=== PATIENT | male | born 1970 | race African-American/Black ===

== ENCOUNTER 2017-11-22 03:31 | Emergency (ER) | payer SELFPAY ==
[~2017-11-22] VITALS: Ht 180.3 cm; Wt 74.0 kg
[~2017-11-22 03:31] MED LIST: GLIP5TAB12 PO; INSU3INS6 SUBCUT; METF500T6 PO
[2017-11-22 05:56] VITALS: BP 129/67
== END 2017-11-22 05:58 | disposition home or self-care (01) ==
LOC: ER 03:31
DX: Z51.89 Encounter for other specified aftercare (principal); L02.31 Cutaneous abscess of buttock; R03.0 Elevated blood-pressure reading, without diagnosis of hypertension; E11.9 Type 2 diabetes mellitus without complications; F12.90 Cannabis use, unspecified, uncomplicated
CPT/HCPCS: 99283

== ENCOUNTER 2018-03-06 06:17 | Emergency (ER) | payer MEDICAID ==
[~2018-03-06] VITALS: Ht 180.3 cm; Wt 73.0 kg
[2018-03-06] MEDS ORDERED: SODIUM CHLORIDE 0.9% 1,000 ML IV ONE ×2 (06:39→08:15)
[2018-03-06 07:13] LABS: BG BASE EXCESS 3.4 mmol/L (-2.0-2.0); BG DEOXYHEMOGLOBIN 4.5 % (0.0-5.0); BG HCO3 ACT 28.7 mmol/L (22.0-26.0); BG METHEMOGLOBIN 0.1 % (0.0-1.5); BG OXYGEN SATURATION 95.4 % (92.0-98.5); BG OXYHEMOGLOBIN 93.4 % (94.0-97.0); BG PCO2 46.5 mmHg (35.0-45.0); BG PH 7.409 (7.350-7.450); BG PO2 79.6 mmHg (75.0-100.0); BG SAMPLE SITE LEFT RADIAL; BG TOTAL HEMOGLOBIN 12.5 g/dL (12.0-18.0); BG VENT MODE ROOM AIR
[2018-03-06 07:33] LABS: BASOPHILS % 0.7 % (0.0-2.0); EOSINOPHILS % 0.7 % (0.0-5.0); HEMATOCRIT. 34.3 % (42.0-52.0); HEMOGLOBIN. 11.6 g/dL (14.0-18.0); LYMPHOCYTES % 21.9 % (20.0-50.0); MEAN PLATELET VOLUME 8.9 fl (7.4-10.4); MONOCYTES % 7.8 % (2.0-8.0); NEUTROPHILS % 68.9 % (40.0-76.0); PLATELET 219 x1000/uL (130-400); RED BLOOD CELL COUNT 3.99 mill/uL (4.7-6.1); RED CELL DISTRIBUTION WIDTH 13.7 % (11.6-14.6)
[2018-03-06 07:57] LABS: CHLORIDE 95 mEq/L (98-107)
[2018-03-06 08:06] LABS: BETA HYDROXYBUTYRATE 0.1 mMol/L (0.0-0.3)
[2018-03-06] MEDS ORDERED: INSULIN REGULAR (HUMULIN R) 300UNITS/3ML IV ONE ×2 (08:15→10:30)
[2018-03-06] MEDS ORDERED: HYDRALAZINE HCL 50MG TABLET PO ONE (10:30)
[2018-03-06 11:55] VITALS: BP 143/70
== END 2018-03-06 12:14 | disposition home or self-care (01) ==
LOC: ER 06:17
DX: E11.65 Type 2 diabetes mellitus with hyperglycemia (principal); I10 Essential (primary) hypertension; F12.10 Cannabis abuse, uncomplicated; E88.09 Other disorders of plasma-protein metabolism, not elsewhere classified; Z79.4 Long term (current) use of insulin
CPT/HCPCS: 36415; 36600; 71045; 73630; 80053; 82010; 82375; 82805; 82962; 85025; 93005; 96361; 96374; 96376; 99285; J1815; J7030; Z7610

== ENCOUNTER 2018-08-31 06:30 | Emergency (ER) | payer MEDICAID ==
[~2018-08-31] VITALS: Ht 180.3 cm; Wt 77.0 kg
[~2018-08-31 06:30] MED LIST changes: +METF-414 PO; -METF500T6 PO
[2018-08-31] MEDS ORDERED: ONDANSETRON HCL 4MG/2ML INJ IV STA (07:15)
[2018-08-31] MEDS ORDERED: MORPHINE SULFATE 4 MG/ML CPJ (NOT FOR IM USE) IV STA (07:15)
[2018-08-31 07:36] LABS: BASOPHILS % 0.6 % (0.0-2.0); EOSINOPHILS % 1.1 % (0.0-5.0); HEMATOCRIT. 31.3 % (42.0-52.0); HEMOGLOBIN. 10.7 g/dL (14.0-18.0); LYMPHOCYTES % 30.6 % (20.0-50.0); MEAN CORPUSCULAR HEMOGLOBIN 28.8 pg (28.0-32.0); MEAN CORPUSCULAR VOLUME 84.1 fL (80.0-94.0); MEAN PLATELET VOLUME 8.4 fl (7.4-10.4); NEUTROPHILS % 59.7 % (40.0-76.0); PLATELET 150 x1000/uL (130-400); RED BLOOD CELL COUNT 3.72 mill/uL (4.7-6.1); RED CELL DISTRIBUTION WIDTH 13.5 % (11.6-14.6)
[2018-08-31 07:41] LABS: CHLORIDE 99 mEq/L (98-107)
[2018-08-31] MEDS ORDERED: DOCUSATE SODIUM SUGAR FREE 100MG/10ML UDC NG ONE (10:00)
[2018-08-31] MEDS ORDERED: SODIUM CHLORIDE 0.9% 1,000 ML IV ONE (10:12)
[2018-08-31 10:25] LABS: CLARITY URINE CLEAR (CLEAR); COLOR URINE YELLOW (YELLOW); KETONES URINE NEGATIVE (NEGATIVE); LEUKOCYTE ESTERASE URINE NEGATIVE (NEGATIVE); NITRITE URINE NEGATIVE (NEGATIVE); OCCULT BLOOD URINE TRACE (NEGATIVE); PH URINE 7.5 (4.5-8.0); PROTEIN URINE 2+ (NEGATIVE); SPECIFIC GRAVITY URINE 1.031 (1.005-1.030); UROBILINOGEN URINE 0.2 E.U./dL (0.2-1.0)
[2018-08-31] MEDS ORDERED: IOHEXOL-300 100 ML BOTTLE ONE (10:57)
[2018-08-31 13:48] VITALS: BP 180/103
== END 2018-08-31 14:01 | disposition home or self-care (01) ==
LOC: ER 06:30
DX: K59.00 Constipation, unspecified (principal); E11.65 Type 2 diabetes mellitus with hyperglycemia; L90.5 Scar conditions and fibrosis of skin; R10.33 Periumbilical pain; R10.32 Left lower quadrant pain; I10 Essential (primary) hypertension; E78.00 Pure hypercholesterolemia, unspecified; F12.10 Cannabis abuse, uncomplicated; Z79.4 Long term (current) use of insulin; Z79.899 Other long term (current) drug therapy
CPT/HCPCS: 36415; 74177; 80053; 81003; 82962; 83690; 85025; 96361; 96374; 96375; 99284; J2270; J2405; J7030; Q9967

== ENCOUNTER 2018-09-19 07:23 | Emergency (ER) | payer MEDICAID ==
[~2018-09-19] VITALS: Ht 180.3 cm; Wt 75.0 kg
[2018-09-19] MEDS ORDERED: SODIUM CHLORIDE 0.9% 1,000 ML IV ONE (09:07)
[2018-09-19] MEDS ORDERED: GLIPIZIDE XL 2.5MG TABLET PO ONE (09:15)
[2018-09-19] MEDS ORDERED: INSULIN REGULAR (HUMULIN R) 300UNITS/3ML IV ONE (09:15)
[2018-09-19] MEDS ORDERED: INSULIN GLARGINE UD 100 UNITS/ML SYR SUBCUT ONE (09:15)
[2018-09-19] MEDS ORDERED: METFORMIN HCL 500MG TABLET PO ONE (09:15)
[2018-09-19 09:34] LABS: CHLORIDE 100 mEq/L (98-107)
[2018-09-19 09:46] LABS: BETA HYDROXYBUTYRATE 0.2 mMol/L (0.0-0.3)
[2018-09-19] MEDS ORDERED: GLIPIZIDE 5MG XL TABLET PO NR (10:15)
[2018-09-19 12:20] VITALS: BP 180/101
== END 2018-09-19 12:40 | disposition home or self-care (01) ==
LOC: ER 07:23
DX: E11.65 Type 2 diabetes mellitus with hyperglycemia (principal); Z79.4 Long term (current) use of insulin; Z79.84 Long term (current) use of oral hypoglycemic drugs
CPT/HCPCS: 36415; 80048; 82010; 82962; 83735; 96361; 96372; 96374; 99283; J1815; J7030

== ENCOUNTER 2018-12-06 21:02 | Inpatient (IN) | payer MEDICAID ==
[~2018-12-06] VITALS: Ht 182.9 cm; Wt 74.8 kg
[2018-12-07] MEDS ORDERED: SODIUM CHLORIDE 0.9% 1,000 ML IV ONE
[2018-12-07] MEDS ORDERED: INSULIN REGULAR (HUMULIN R) 300UNITS/3ML IV ONE
[2018-12-07] MEDS ORDERED: ONDANSETRON HCL 4MG/2ML INJ IV ONE
[2018-12-07] MEDS ORDERED: MORPHINE SULFATE 4 MG/ML CPJ (NOT FOR IM USE) IV ONE
[2018-12-07] MEDS ORDERED: LABETALOL 5MG/ML SYR 20 MG/4 ML SYRINGE IV ONE
[2018-12-07 00:25] LABS: BASOPHILS % 0.5 % (0.0-2.0); EOSINOPHILS % 0.1 % (0.0-5.0); HEMATOCRIT. 34.9 % (42.0-52.0); HEMOGLOBIN. 12.4 g/dL (14.0-18.0); LYMPHOCYTES % 16.6 % (20.0-50.0); MEAN CORPUSCULAR HEMOGLOBIN 29.7 pg (28.0-32.0); MEAN CORPUSCULAR VOLUME 83.8 fL (80.0-94.0); MONOCYTES % 4.6 % (2.0-8.0); NEUTROPHILS % 78.2 % (40.0-76.0); PLATELET 220 x1000/uL (130-400); RED BLOOD CELL COUNT 4.17 mill/uL (4.7-6.1); RED CELL DISTRIBUTION WIDTH 14.1 % (11.6-14.6)
[2018-12-07 00:31] LABS: CHLORIDE 105 mEq/L (98-107)
[2018-12-07 04:40] VITALS: BP 169/102
[2018-12-07] MEDS ORDERED: DEXTROSE 50% WATER 50ML SYRINGE IV PRN (06:00)
[2018-12-07] MEDS ORDERED: ONDANSETRON HCL 4MG/2ML INJ IV PRN ×2 (06:00→16:00)
[2018-12-07] MEDS: BLOOD SUGAR DIAGNOSTIC STRIP TEST SCH ×4 (06:38→21:00)
[2018-12-07] MEDS: SODIUM CHLORIDE 0.9% 1,000 ML IV SCH (06:44)
[2018-12-07] MEDS: HYDRALAZINE 20MG/ML VIAL IV PRN (06:44)
[2018-12-07] MEDS: INSULIN LISPRO 100 UNITS/ML SUBCUT SCH ×4 (06:45→21:16)
[2018-12-07 08:00] VITALS: BP 148/93
[2018-12-07 10:24] LABS: BASOPHILS % 0.4 % (0.0-2.0); CHLORIDE 106 mEq/L (98-107); HEMATOCRIT. 32.1 % (42.0-52.0); HEMOGLOBIN. 11.4 g/dL (14.0-18.0); LYMPHOCYTES % 14.8 % (20.0-50.0); MEAN CORPUSCULAR HEMOGLOBIN 29.6 pg (28.0-32.0); MEAN CORPUSCULAR VOLUME 83.5 fL (80.0-94.0); MEAN PLATELET VOLUME 8.3 fl (7.4-10.4); MONOCYTES % 7.9 % (2.0-8.0); NEUTROPHILS % 76.9 % (40.0-76.0); PLATELET 233 x1000/uL (130-400); RED BLOOD CELL COUNT 3.84 mill/uL (4.7-6.1)
[2018-12-07 12:00] VITALS: BP 127/71
[2018-12-07 12:28] LABS: T4 FREE 1.12 ng/dL (0.76-1.46)
[2018-12-07 16:00] VITALS: BP 162/90
[2018-12-07] MEDS ORDERED: CLONIDINE 0.1MG TABLET PO PRN (16:00)
[2018-12-07] MEDS ORDERED: GUAIFENESIN 200MG/10ML SUGAR FREE UDC PO PRN (16:00)
[2018-12-07] MEDS ORDERED: DIPHENHYDRAMINE 50MG/ML VIAL IV PRN (16:00)
[2018-12-07] MEDS ORDERED: NA PHOS,M-B/NA PHOS,DI-BA ENEMA 118ML PR PRN (16:00)
[2018-12-07] MEDS ORDERED: DOCUSATE SODIUM 100MG CAPSULE PO PRN (16:00)
[2018-12-07] MEDS ORDERED: MAGNESIUM/ALUMINUM HYDROXIDE/SIMETHICONE 30ML UDC PO PRN (16:00)
[2018-12-07] MEDS ORDERED: IPRATROPIUM/ALBUTEROL 0.5-3(2.5)MG/3ML NEB INH PRN (16:00)
[2018-12-07] MEDS ORDERED: ACETAMINOPHEN 650MG SUPP PR PRN (16:00)
[2018-12-07 16:27] LABS: CREATINE KINASE 179 IU/L (39-308)
[2018-12-07] MEDS: METOCLOPRAMIDE HCL 10MG/2ML VIAL IV SCH ×2 (17:58→23:46)
[2018-12-07] MEDS: FAMOTIDINE 20MG/2ML VIAL IV SCH (17:58)
[2018-12-07] MEDS: BISACODYL 5MG TABLET PO SCH (17:58)
[2018-12-07 18:00] LABS: AMYLASE 42 IU/L (25-115)
[2018-12-07] MEDS: IPRATROPIUM/ALBUTEROL 0.5-3(2.5)MG/3ML NEB INH SCH (19:50)
[2018-12-07 20:00] VITALS: BP 145/88
[2018-12-07] MEDS: SODIUM CHLORIDE 0.9% INJ 3ML FLUSH IVF SCH (21:16)
[2018-12-07 22:33] LABS: CREATINE KINASE 160 IU/L (39-308)
[2018-12-07 22:36] LABS: CREATINE KINASE MB FRACTION 3.3 ng/mL (0.5-3.6)
[2018-12-08] VITALS: BP 146/88
[2018-12-08] MEDS: IPRATROPIUM/ALBUTEROL 0.5-3(2.5)MG/3ML NEB INH SCH (01:18)
[2018-12-08] MEDS: SODIUM CHLORIDE 0.9% 1,000 ML IV SCH ×2 (03:25→11:51)
[2018-12-08 04:00] VITALS: BP 156/97
[2018-12-08] MEDS: METOCLOPRAMIDE HCL 10MG/2ML VIAL IV SCH ×2 (05:07→11:51)
[2018-12-08] MEDS: SODIUM CHLORIDE 0.9% INJ 3ML FLUSH IVF SCH (05:07)
[2018-12-08] MEDS: BLOOD SUGAR DIAGNOSTIC STRIP TEST SCH ×2 (06:45→11:43)
[2018-12-08 08:00] VITALS: BP 126/64
[2018-12-08] MEDS: FAMOTIDINE 20MG/2ML VIAL IV SCH (08:04)
[2018-12-08] MEDS: HYDRALAZINE 20MG/ML VIAL IV PRN (08:05)
[2018-12-08] MEDS: INSULIN LISPRO 100 UNITS/ML SUBCUT SCH ×2 (08:06→11:50)
[2018-12-08] MEDS: BISACODYL 5MG TABLET PO SCH (08:11)
[2018-12-08] MEDS ORDERED: AMLODIPINE 10MG TABLET PO SCH (09:00)
[2018-12-08 11:51] VITALS: BP 154/89
[2018-12-08 12:00] VITALS: BP 154/89
== END 2018-12-08 12:29 | disposition home or self-care (01) | DRG 253 ==
LOC: ER 23:42 → EDBEDREQDT 12-07 01:40 → EDBEDREQ 12-07 01:40 → EDBEDREQTM 12-07 01:40 → ENRESERV 12-07 03:45 → 5WST 12-07 05:07
PROVIDERS: ADMIT Family Medicine; ATTEND Family Medicine
DX: K92.0 Hematemesis (principal); K31.84 Gastroparesis; E11.43 Type 2 diabetes mellitus with diabetic autonomic (poly)neuropathy; E11.65 Type 2 diabetes mellitus with hyperglycemia; E86.0 Dehydration; R79.89 Other specified abnormal findings of blood chemistry; I10 Essential (primary) hypertension; Z60.2 Problems related to living alone; R00.0 Tachycardia, unspecified; Z79.4 Long term (current) use of insulin; Z79.84 Long term (current) use of oral hypoglycemic drugs; Z79.899 Other long term (current) drug therapy
CPT/HCPCS: 36415; 71045; 74021; 76700; 80048; 80061; 82150; 82550; 82553; 82962; 83036; 83605; 83880; 84439; 84443; 84484; 85379; 93005; 93306; 96374; 96375; 99285; J0360; J1815; J2270; J2405; J2765; J3490; J7030; J7620

== ENCOUNTER 2019-05-25 18:50 | Inpatient (IN) | payer MEDICAID ==
[~2019-05-25] VITALS: Ht 180.3 cm; Wt 74.8 kg
[2019-05-25] MEDS ORDERED: ONDANSETRON HCL 4MG/2ML INJ IV STA (19:24)
[2019-05-25] MEDS ORDERED: SODIUM CHLORIDE 0.9% 1000ML BAG (SEPSIS BOLUS) IV ONE (19:30)
[2019-05-25 20:25] LABS: BG BASE EXCESS -3.2 mmol/L (-2.0-2.0); BG CARBOXYHEMOGLOBIN 1.3 % (0.5-1.5); BG DEOXYHEMOGLOBIN 3.6 % (0.0-5.0); BG FRACTION INSPIRED OXYGEN 21; BG HCO3 ACT 19.5 mmol/L (22.0-26.0); BG METHEMOGLOBIN 0.1 % (0.0-1.5); BG OXYGEN SATURATION 96.3 % (92.0-98.5); BG PCO2 28.8 mmHg (35.0-45.0); BG PH 7.448 (7.350-7.450); BG SAMPLE SITE RIGHT RADIAL; BG TOTAL HEMOGLOBIN 14.5 g/dL (12.0-18.0); BG VENT MODE ROOM AIR
[2019-05-25 21:10] LABS: BASOPHILS % 0.5 % (0.0-2.0); HEMATOCRIT. 33.9 % (42.0-52.0); HEMOGLOBIN. 11.9 g/dL (14.0-18.0); LYMPHOCYTES % 10.5 % (20.0-50.0); MEAN CORPUSCULAR HEMOGLOBIN 30.1 pg (28.0-32.0); MEAN CORPUSCULAR VOLUME 86.1 fL (80.0-94.0); MEAN PLATELET VOLUME 8.6 fl (7.4-10.4); MONOCYTES % 5.6 % (2.0-8.0); NEUTROPHILS % 83.4 % (40.0-76.0); PLATELET 202 x1000/uL (130-400); RED BLOOD CELL COUNT 3.94 mill/uL (4.7-6.1); RED CELL DISTRIBUTION WIDTH 13.6 % (11.6-14.6)
[2019-05-25 21:13] LABS: INR 0.9; PROTHROMBIN TIME 9.8 sec (9.6-11.0)
[2019-05-25 21:15] LABS: CHLORIDE 105 mEq/L (98-107)
[2019-05-25 21:17] LABS: ETHANOL BLOOD < 10 mg/dL
[2019-05-25 21:20] LABS: CLARITY URINE CLEAR (CLEAR); COLOR URINE YELLOW (YELLOW); KETONES URINE 1+ (NEGATIVE); LEUKOCYTE ESTERASE URINE TRACE (NEGATIVE); NITRITE URINE NEGATIVE (NEGATIVE); OCCULT BLOOD URINE 1+ (NEGATIVE); PH URINE 7.5 (4.5-8.0); PROTEIN URINE 2+ (NEGATIVE); UROBILINOGEN URINE 0.2 E.U./dL (0.2-1.0)
[2019-05-25 21:46] LABS: *AMPHETAMINES SCREEN URINE NEGATIVE (NEGATIVE); *BARBITURATES SCREEN URINE NEGATIVE (NEGATIVE); *BENZODIAZEPINES SCREEN URINE NEGATIVE (NEGATIVE); *COCAINE SCREEN URINE NEGATIVE (NEGATIVE); CANNABINOID URINE SCREEN PRESUMTIVE POSITIVE (NEGATIVE); METHADONE URINE SCREEN NEGATIVE (NEGATIVE); OPIATES URINE SCREEN NEGATIVE (NEGATIVE); PHENCYCLIDINE URINE SCREEN NEGATIVE (NEGATIVE)
[2019-05-25] MEDS ORDERED: CEFTRIAXONE 1 G PREMIX 50 ML IV NR (22:00)
[2019-05-25] MEDS ORDERED: HYDRALAZINE 20MG/ML VIAL IV NR (22:00)
[2019-05-25] MEDS ORDERED: IOHEXOL-300 100 ML BOTTLE ONE (22:22)
[2019-05-25] MEDS ORDERED: ONDANSETRON HCL 4MG/2ML INJ IV NR (23:00)
[2019-05-26] MEDS ORDERED: METOCLOPRAMIDE HCL 10MG/2ML VIAL IV ONE ×2 (00:15→05:15)
[2019-05-26] MEDS ORDERED: SODIUM CHLORIDE 0.9% 1,000 ML IV ONE (00:16)
[2019-05-26] MEDS ORDERED: DEXTROSE 50% WATER 50ML SYRINGE IV PRN (08:45)
[2019-05-26 09:00] VITALS: BP 155/75
[2019-05-26] MEDS ORDERED: SODIUM CHLORIDE 0.9% 1,000 ML IV SCH (09:30)
[2019-05-26] MEDS ORDERED: ONDANSETRON HCL 4MG/2ML INJ IV PRN (09:30)
[2019-05-26] MEDS: BLOOD SUGAR DIAGNOSTIC STRIP TEST SCH ×2 (09:47→12:40)
[2019-05-26] MEDS: INSULIN LISPRO 100 UNITS/ML SUBCUT SCH ×2 (09:57→13:10)
[2019-05-26] MEDS ORDERED: AMLODIPINE 5MG TABLET PO SCH (10:00)
[2019-05-26] MEDS ORDERED: INSULIN GLARGINE UD 100 UNITS/ML SYR SUBCUT SCH ×2 (10:30→13:00)
[2019-05-26 12:00] VITALS: BP 131/74
[2019-05-26] MEDS ORDERED: LEVO500T2 MT (14:31)
[2019-05-26] MEDS ORDERED: OXYB5TAB17 MT (14:31)
[2019-05-26 16:42] VITALS: BP 131/74
[2019-05-26] MEDS ORDERED: CEFTRIAXONE 1 G PREMIX 50 ML IV SCH (21:00)
[2019-05-26] MEDS ORDERED: OXYBUTYNIN CHLORIDE 5MG TABLET PO SCH (21:00)
== END 2019-05-26 17:08 | DRG 720 ==
LOC: ER 18:50 → 7WST 21:56 → EDBEDREQTM 22:00 → EDBEDREQ 22:00 → EDBEDREQSVC 22:00 → ENRESERV 05-26 07:17
PROVIDERS: ADMIT Internal Medicine; ATTEND Internal Medicine
DX: A41.9 Sepsis, unspecified organism (principal); E87.2 Acidosis; E11.65 Type 2 diabetes mellitus with hyperglycemia; D64.9 Anemia, unspecified; E44.1 Mild protein-calorie malnutrition; F12.90 Cannabis use, unspecified, uncomplicated; F17.210 Nicotine dependence, cigarettes, uncomplicated; R65.20 Severe sepsis without septic shock; G61.81 Chronic inflammatory demyelinating polyneuritis; I10 Essential (primary) hypertension; N12 Tubulo-interstitial nephritis, not specified as acute or chronic; Z87.440 Personal history of urinary (tract) infections; Z68.23 Body mass index [BMI] 23.0-23.9, adult; Z79.4 Long term (current) use of insulin; Z79.899 Other long term (current) drug therapy
CPT/HCPCS: 36415; 36600; 71045; 74177; 80053; 80305; 80320; 81003; 82375; 82805; 82962; 83036; 83605; 83735; 83880; 84484; 85025; 93005; 99291; J0360; J0696; J1815; J2405; J2765; J7030; Q9967; G0480

== ENCOUNTER 2020-01-05 19:46 | Emergency (ER) | payer MEDICAID ==
[~2020-01-05] VITALS: Ht 167.6 cm; Wt 69.0 kg
[~2020-01-05 19:46] MED LIST changes: +LEVO500T2 MT; +OXYB5TAB17 MT
[2020-01-05] MEDS ORDERED: SODIUM CHLORIDE 0.9% 1,000 ML IV ONE (20:14)
[2020-01-05] MEDS ORDERED: KETOROLAC 30MG/ML VIAL IV STA (20:14)
[2020-01-05] MEDS ORDERED: ONDANSETRON HCL 4MG/2ML INJ IV STA ×2 (20:14→22:47)
[2020-01-05 21:09] LABS: BASOPHILS % 0.3 % (0.0-2.0); HEMOGLOBIN. 12.9 g/dL (14.0-18.0); LYMPHOCYTES % 8.8 % (20.0-50.0); MEAN CORPUSCULAR HEMOGLOBIN 29.8 pg (28.0-32.0); MEAN CORPUSCULAR VOLUME 85.7 fL (80.0-94.0); MEAN PLATELET VOLUME 8.5 fl (7.4-10.4); MONOCYTES % 3.4 % (2.0-8.0); NEUTROPHILS % 87.5 % (40.0-76.0); PLATELET 220 x1000/uL (130-400); RED BLOOD CELL COUNT 4.31 mill/uL (4.7-6.1); RED CELL DISTRIBUTION WIDTH 14.1 % (11.6-14.6)
[2020-01-05 21:17] LABS: CHLORIDE 103 mEq/L (98-107)
[2020-01-05 21:21] LABS: ETHANOL BLOOD < 10 mg/dL
[2020-01-05 21:28] LABS: INR 0.9; PROTHROMBIN TIME 9.8 sec (9.6-11.0)
[2020-01-05] MEDS ORDERED: LABETALOL HCL 20MG/4ML CARPUJECT IV ONE (21:30)
[2020-01-05] MEDS ORDERED: POTASSIUM CHLORIDE 20MEQ TABLET SR PO ONE (22:15)
[2020-01-05] MEDS ORDERED: MORPHINE SULFATE 4 MG/ML CPJ (NOT FOR IM USE) IV STA (22:47)
[2020-01-05 22:55] LABS: CLARITY URINE CLEAR (CLEAR); COLOR URINE YELLOW (YELLOW); KETONES URINE 1+ (NEGATIVE); LEUKOCYTE ESTERASE URINE NEGATIVE (NEGATIVE); NITRITE URINE NEGATIVE (NEGATIVE); OCCULT BLOOD URINE 2+ (NEGATIVE); PROTEIN URINE 4+ (NEGATIVE); SPECIFIC GRAVITY URINE 1.021 (1.005-1.030); UROBILINOGEN URINE 0.2 E.U./dL (0.2-1.0)
[2020-01-05 23:04] LABS: *AMPHETAMINES SCREEN URINE NEGATIVE (NEGATIVE); *BARBITURATES SCREEN URINE NEGATIVE (NEGATIVE); *BENZODIAZEPINES SCREEN URINE NEGATIVE (NEGATIVE); *COCAINE SCREEN URINE NEGATIVE (NEGATIVE)
[2020-01-05 23:05] LABS: CANNABINOID URINE SCREEN PRESUMTIVE POSITIVE (NEGATIVE); METHADONE URINE SCREEN NEGATIVE (NEGATIVE); OPIATES URINE SCREEN NEGATIVE (NEGATIVE); PHENCYCLIDINE URINE SCREEN NEGATIVE (NEGATIVE)
[2020-01-05 23:41] VITALS: BP 180/100
== END 2020-01-05 23:44 | disposition home or self-care (01) ==
LOC: ER 19:51
DX: R10.33 Periumbilical pain (principal); I16.0 Hypertensive urgency; E11.65 Type 2 diabetes mellitus with hyperglycemia; E87.6 Hypokalemia; Z79.4 Long term (current) use of insulin; R11.2 Nausea with vomiting, unspecified
CPT/HCPCS: 36415; 74176; 80053; 80305; 80320; 81003; 83690; 85025; 85610; 93005; 96361; 96374; 96375; 99285; J1885; J2405; J3490; J7030; G0480